=== PATIENT | female | born 1950 | race Caucasian/White ===

== ENCOUNTER 2022-11-27 09:44 | Emergency (ER) | payer MEDICARE, OTHER, SELFPAY ==
[2022-11-27 09:53] VITALS: BP 143/81; PULSE 75; RESP 16; TEMP 36.1; O2SAT 97
--- NOTE | 2022-11-27 10:20 | ED.GENADULT ---
HPI - General Adult General Chief complaint: Urogenital-Female Stated complaint: Urinary Problem History of Present Illness HPI narrative: 72-year-old female presents to urgent care today complaining of pain with urination since yesterday. She said yesterday she noticed that she started having pain with urination and stated that she feels like she had constantly go to the bathroom all day. Patient took some azo tablets to relieve her dysuria. Patient denies any abdominal pain, flank pain, back pain. Patient stated that her last UTI was about a year and a half ago. Patient states she is not drinking as much fluids as she probably should because she does not want to go. Patient denies any hematuria. Related Data Home Medications Medication Instructions Recorded Confirmed apixaban 5 mg tablet (Eliquis) 5 mg PO DAILY 11/27/22 11/27/22 atorvastatin 20 mg tablet 20 mg PO DAILY 11/27/22 11/27/22 diltiazem HCl 240 mg 240 mg PO DAILY 11/27/22 11/27/22 capsule,extended release 24 hr paroxetine HCl 40 mg tablet 40 mg PO DAILY 11/27/22 11/27/22 Allergies Allergy/AdvReac Type Severity Reaction Status Date / Time No Known Allergies Allergy Verified 11/27/22 10:17 Review of Systems Review of Systems: CONSTITUTIONAL: Denies fever, chills, or sweats. EYES: Denies visual changes, redness, or discharge. ENT: Denies otalgia and sore throat CARDIOVASCULAR: Denies chest pain, palpitations, or edema. RESPIRATORY: Denies cough or dyspnea. GASTROINTESTINAL: Denies abdominal pain, nausea, vomiting, or diarrhea. GENITOURINARY: Denies hematuria. Positive for dysuria and increased frequency SKIN: Denies rash or itching. MUSCULOSKELETAL: Denies back pain, joint pain, or myalgia. NEUROLOGIC: Denies headache, numbness, or weakness. Pertinent positives per HPI. PMFSH Comments At the time of my signature, I reviewed and agree with the nursing past medical, surgical, social, and family history. There is no relevant family history pertinent to the patient complaint. Exam Narrative: GENERAL: This is a well-nourished, well-developed patient, in no apparent distress. HEAD: normocephalic, atraumatic. EYES: PERRL. Sclera clear/white. Vision is grossly intact. EARS: External ears normal, auditory canals clear and without drainage, TMs normal without perforation. Hearing grossly intact. NOSE: External nose normal with no obvious nasal discharge, nares without redness, no rhinorrhea. THROAT: Mucous membranes moist, posterior pharynx clear. NECK: Neck supple, non-tender without lymphadenopathy, masses or thyromegaly. CARDIOVASCULAR: Regular rate and rhythm without murmurs, gallops, or rubs. RESPIRATORY: Clear to auscultation. Breath sounds equal bilaterally. No wheezes, rales, or rhonchi. GASTROINTESTINAL: Abdomen soft, non-tender, nondistended. Bowel sounds are active. No hepato-splenomegaly, or palpable masses. No guarding. No CVA tenderness SKIN: warm, intact with no suspicious lesions or rash, good texture and turgor. NEURO: awake, alert, and oriented to person, place and time. There were no obvious focal neurologic abnormalities. EXTREMITIES: No clubbing, cyanosis, or edema. No joint tenderness, effusion, or edema noted. BACK: Nontender without deformity or crepitus. No flank tenderness. Course Course Level of Care: Express Care Visit Vital Signs Vital signs: Vital Signs Temperature 97 F L 11/27/22 09:53 Pulse Rate 75 11/27/22 09:53 Respiratory Rate 16 11/27/22 09:53 Blood Pressure 143/81 H 11/27/22 09:53 Pulse Oximetry 97 11/27/22 09:53 Oxygen Delivery Room Air 11/27/22 09:53 Temperature 97 F L 11/27/22 09:53 Pulse Rate 75 11/27/22 09:53 Respiratory Rate 16 11/27/22 09:53 Blood Pressure 143/81 H 11/27/22 09:53 Pulse Oximetry 97 11/27/22 09:53 Oxygen Delivery Room Air 11/27/22 09:53 Reviewed Medical Decision Making MDM Narrative Medical decision making narrative: We will send a urine
== END 2022-11-27 10:36 | disposition home or self-care (01) ==
PROVIDERS: Emergency Provider Nurse Practitioner Family; PCP Internal Medicine
DX: N39.0 Urinary tract infection, site not specified (principal); E78.00 Pure hypercholesterolemia, unspecified; I10 Essential (primary) hypertension; F41.9 Anxiety disorder, unspecified; F32.A Depression, unspecified; Z86.718 Personal history of other venous thrombosis and embolism; Z79.82 Long term (current) use of aspirin
CPT/HCPCS: 81003; 87077; 87086; 87088; 99213; G0463